=== PATIENT | female | born 2000 | race Caucasian/White ===

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

== ENCOUNTER 2021-03-13 23:25 | Emergency (ER) | payer OTHER ==
[~2021-03-13] VITALS: Ht 160 cm; Wt 95.5 kg
[~2021-03-13 23:25] MED LIST: FAMO-63 PO
[2021-03-13 23:37] VITALS: BP 149/79
--- NOTE | 2021-03-14 01:38 | ED.ADGEN ---
Past Medical History Past Medical History: Anxiety, Depression Past Surgical History: No Surgical History, Tonsillectomy Smoking Status: Never Smoker Alcohol Use: None Drug Use: None General Adult EDM: Chief Complaint: HEAD INJURY/TRAUMA HPI: HPI: Patient is a 21 year old female coming in for evaluation of headache after she had a 15 pound box fall on her head while she was at work. Patient has an abrasion on her left forehead but denies any loss of consciousness. Tetanus is up-to-date. Patient states that she is evaluated at work but started having light sensitivity and headache. Has nausea but no vomiting denies any nausea now. Incident happened about 6 hours prior to arrival Review of Systems: Review of Systems: All other systems within normal limits except for as noted in the HPI Allergies: Allergies: Allergies Coded Allergies Type Severity Reaction Last Updated Verified No Known Drug Allergies 07/14/15 No Physical Exam: PE: Constitutional: Well developed, well nourished, no acute distress, non-toxic appearance. [] HENT: Normocephalic, atraumatic, bilateral external ears normal, nose normal. TMs normal, no gil sign, no hematoma Eyes: PERRLA, conjunctiva normal, no discharge. Extraocular [] Neck: No rigidity, supple, no stridor. [] Cardiovascular: Regular rate and rhythm, brisk cap refill [] Lungs & Thorax: Non labored symmetric respirations, no tachypnea or respiratory distress [] Abdomen: Soft, nondistended. Skin: Warm, dry, no erythema, no rash. Linear abrasion left [] Back: Unremarkable Extremities: No deformities, range of motion grossly intact, no lower extremity edema [] Neurologic: Alert and oriented X 3, no focal deficits noted. [] Psychologic: Affect normal, judgement normal, mood normal. [] Current Patient Data: Vital Signs: Vital Signs Date Time Temp Pulse Resp B/P (MAP) Pulse Ox O2 Delivery O2 Flow Rate FiO2 03/13/21 23:37 98.7 51 20 149/79 (102) 100 Room Air 98.7 EKG: EKG: [] Heart Score: C/O Chest Pain: No Risk Factors: Risk Factors: DM, Current or recent (<one month) smoker, HTN, HLP, family histo ry of CAD, obesity. Risk Scores: Score 0 - 3: 2.5% MACE over next 6 weeks - Discharge Home Score 4 - 6: 20.3% MACE over next 6 weeks - Admit for Clinical Observation Score 7 - 10: 72.7% MACE over next 6 weeks - Early Invasive Strategies Radiology/Procedures: Radiology/Procedures: [] Course & Med Decision Making: Course & Med Decision Making Pertinent Labs and Imaging studies reviewed. (See chart for details) [] Dragon Disclaimer: Dragon Disclaimer: This electronic medical record was generated, in whole or in part, using a voice recognition dictation system. Departure Departure Impression: Primary Impression: Concussion Disposition: 01 HOME / SELF CARE / HOMELESS Condition: STABLE Referrals: MIHAELA DUNN MD (PCP) Patient Instructions: Concussion-SportsMed MERCEDES LAND MD Mar 14, 2021 01:38
== END 2021-03-14 02:13 | disposition home or self-care (01) ==
LOC: ER 23:25
DX: S06.0X9A Concussion with loss of consciousness of unspecified duration, initial encounter (principal); W20.8XXA Other cause of strike by thrown, projected or falling object, initial encounter; Y93.89 Activity, other specified; Y92.89 Other specified places as the place of occurrence of the external cause; Y99.8 Other external cause status
CPT/HCPCS: 99281